=== PATIENT | male | born 1975 | race Caucasian/White ===

== ENCOUNTER → 2016-12-09 | Outpatient (CLI) | payer OTHER, BC ==
[2016-09-11 10:37] VITALS: BP 133/86
[~2016-12-09] MED LIST: ACET-704 PO; ALPR0.25 PO; ALPR0.5T PO; ALPR1TAB2 PO; APIX5TAB3 PO; GABA-586 PO; METO50TA2 PO; ONDA4TAB10 PO; TIZA4TAB PO; TRAM50TA PO
--- NOTE | 2016-12-09 11:25 | RAD ---
Right upper extremity venous ultrasound, 12/09/2016: History: Follow-up blood clots Duplex evaluation of the major veins in the right shoulder and arm was performed including grayscale, color-flow and spectral Doppler analysis. The right internal jugular, subclavian, axillary and paired brachial veins are patent. The right brachial vein clots seen on the 09/10/2016 study are no longer evident. The cephalic and basilic veins are patent. IMPRESSION: No current evidence of significant venous thrombosis in the right upper extremity. Previously seen right basilic and brachial thrombi have cleared.
== END | disposition home or self-care (01) ==
LOC: US 08:39
PROVIDERS: ATTEND Physician Assistant
DX: I82.621 Acute embolism and thrombosis of deep veins of right upper extremity (principal)
CPT/HCPCS: 93971

== ENCOUNTER → 2017-03-27 | Outpatient (CLI) | payer OTHER ==
[2016-09-11 10:37] VITALS: BP 133/86
[2017-03-28 03:12] LABS: T3 TOTAL 130 ng/dL (71-180); THYROXINE 7.1 ug/dL (4.5-12.0)
[2017-03-28 13:58] LABS: THYROID STIM HORMONE (TSH) 2.084 uIU/mL (0.358-3.740)
== END | disposition home or self-care (01) ==
LOC: LAB 09:59
PROVIDERS: ATTEND Psychiatry & Neurology Neurology
DX: G62.9 Polyneuropathy, unspecified (principal)
CPT/HCPCS: 36415; 80061; 82607; 82746; 82947; 84165; 84436; 84443; 84480; 85651; 86334

== ENCOUNTER → 2019-12-25 | Outpatient (CLI) | payer MEDICAID ==
[2016-09-11 10:37] VITALS: BP 133/86
[~2019-12-25] MED LIST changes: -METO50TA2 PO; +METO50TA6 PO; -TIZA4TAB PO; +TIZA4TAB2 PO
--- NOTE | 2019-12-25 13:40 | RAD ---
Exam: Right Upper Quadrant Ultrasound 12/25/2019 12:00 AM Indication: Reason: RUQ PAIN, R/O GALLSTONES / Spl. Instructions: / History: Technique: Multiple realtime grayscale sonographic images were obtained over the abdomen. Static images were submitted for interpretation. Comparisons: None Findings: Pancreas and IVC are nonvisualized secondary to body habitus and overlying gas filled bowel. The liver is enlarged measuring 20 cm longitudinally. There is diffuse increase in hepatic echogenicity suggesting hepatic steatosis. The common bile duct is nonvisualized. The gallbladder is nondistended. There is no evidence for cholelithiasis. There is no wall thickening, or pericholecystic fluid. The Right kidney is normal in size measuring 11.2 cm longitudinally. There is no evidence for mass, nephrolithiasis, or hydronephrosis No ascites is identified Impression: 1. Hepatomegaly, hepatic steatosis 2. Otherwise unremarkable sonographic appearance of the right upper quadrant Electronically signed by: Jaime Garcia MD (12/25/2019 1:38 PM) [id number]
== END | disposition home or self-care (01) ==
LOC: US 10:35
PROVIDERS: ATTEND Specialist
DX: K76.0 Fatty (change of) liver, not elsewhere classified (principal); K21.0 Gastro-esophageal reflux disease with esophagitis
CPT/HCPCS: 76705

== ENCOUNTER → 2020-07-30 | Outpatient (CLI) | payer MEDICAID ==
[2016-09-11 10:37] VITALS: BP 133/86
--- NOTE | 2020-07-30 16:40 | RAD ---
EXAM: XR ABDOMEN 2V 07/30/2020 10:40 AM CLINICAL INDICATION: Right lower flank pain, constipation COMPARISON: None TECHNIQUE: 3 views of abdomen FINDINGS: Bowel gas pattern is nonspecific and nonobstructive. Normal volume of stool. Cholecystecto my clips are noted. There are phleboliths in the pelvis. No definite urolithiasis. No acute osseous a bnormality. Lung bases are clear. IMPRESSION: Unremarkable abdominal radiograph. Electronically signed by: Shelli Sanders MD (07/30/2020 4:37 PM) [id number]
== END ==
LOC: PMG 10:32
PROVIDERS: ATTEND Physician Assistant
DX: R10.31 Right lower quadrant pain (principal); Z90.49 Acquired absence of other specified parts of digestive tract
CPT/HCPCS: 74019

== ENCOUNTER → 2021-03-11 | Outpatient (CLI) | payer OTHER ==
[2016-09-11 10:37] VITALS: BP 133/86
--- NOTE | 2021-03-11 10:52 | RAD ---
INDICATION: Reason: WHEEZING, UPPER RESP. INFECTION / Spl. Instructions: / History: COMPARISON: None. FINDINGS: 2 view of chest obtained. Cardiac silhouette is unremarkable. No focal airspace consolidation or pulmonary edema. IMPRESSION: * No focal airspace consolidation or edema. Electronically signed by: Jose C Willis MD (03/11/2021 10:49 AM) [id number]
== END ==
LOC: RAD 10:16
PROVIDERS: ATTEND Nurse Practitioner Family
DX: J06.9 Acute upper respiratory infection, unspecified (principal)
CPT/HCPCS: 71046

== ENCOUNTER → 2021-05-31 | Outpatient (CLI) | payer MEDICAID ==
[2016-09-11 10:37] VITALS: BP 133/86
[~2021-05-31] MED LIST changes: +TIZA-75 PO; -TIZA4TAB2 PO
--- NOTE | 2021-05-31 17:21 | RAD ---
EXAMINATION: XR BILATERAL HIP (WITH OR WITHOUT PELVIS) LEFT 2 VIEWS CLINICAL HISTORY: Left hip pain TECHNIQUE: XR BILATERAL HIP (WITH OR WITHOUT PELVIS) LEFT 2 VIEWS COMPARISON: None FINDINGS/ IMPRESSION: Joint spaces and alignment on the left hip maintained. Right hip unremarkable on limited evaluation. Pubic symphysis and SI joints maintained. No acute fracture. Electronically signed by: Binh Lowe DO (05/31/2021 5:18 PM) [id number]
== END ==
LOC: RAD 13:51
PROVIDERS: ATTEND Physician Assistant
DX: M25.552 Pain in left hip (principal)
CPT/HCPCS: 73502

== ENCOUNTER 2021-06-02 08:17 | Emergency (ER) | payer MEDICAID ==
[~2021-06-02] VITALS: Ht 182.9 cm; Wt 122.7 kg
[2021-06-02] MEDS ORDERED: TRAM50TA PO (08:44)
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
[2021-06-02 08:51] VITALS: BP 143/96
== END 2021-06-02 09:14 | disposition home or self-care (01) ==
LOC: ER 08:28
DX: G89.29 Other chronic pain (principal); M25.552 Pain in left hip; M54.59 Other low back pain; F41.9 Anxiety disorder, unspecified; I10 Essential (primary) hypertension; Z88.5 Allergy status to narcotic agent
CPT/HCPCS: 99283